=== PATIENT | male | born 1980 | race Caucasian/White ===

== ENCOUNTER 2017-06-06 07:53 | Emergency (ER) | payer OTHER ==
[~2017-06-06] VITALS: Ht 172.7 cm; Wt 88.5 kg
--- NOTE | ~2017-06-06 | CR72 ---
[facility]. [facility] A Service of [facility] & [facility] RADIOLOGY TEXT RESULTS PATIENT: KATHIE FARIA LOCATION: SED : 76 UNIT #: [id number] AGE: [address]: Narinder Chau MD SEX: M ORDER DR: [id number] [id number] MR#: [id number] Acc #: [id number] NAME: KATHIE FARIA. : 1980 SEX: M STUDY DATE/TIME: 06/06/2017 8:09 UNIT: SED ROOM: STUDY DESCRIPTION: CR Chest Single View Portable Attending Physician: Narinder Chau M.D. Ordering Physician: Narinder Chau M.D. MEDICAL IMAGING REPORT This report is preliminary unless electronic signature is present. EXAM Portable chest HISTORY Difficulty breathing onset 6 hours ago. FINDINGS A portable view of the chest demonstrates moderate lung volumes satisfactory technique. No infiltrates or effusions. Heart, mediastinum, great vessels and bony thorax unremarkable. Overall no acute findings. Dictated by... Edel Mcdonnell M.D. THIS IS AN ELECTRONICALLY VERIFIED REPORT Edel Mcdonnell M.D. at 06/06/2017 4:45 PM MALKA/edgar TD: 06/06/2017 10:01 JOB #: [id number] MEDICAL IMAGING REPORT Page 1 of 1
[2017-06-06] MEDS ORDERED: NO MEDICATIONS (07:58)
== END 2017-06-06 09:10 | disposition home or self-care (01) ==
LOC: SED 07:53
DX: J20.9 Acute bronchitis, unspecified (principal); Z87.891 Personal history of nicotine dependence; Z88.0 Allergy status to penicillin
CPT/HCPCS: 71010; 99284